=== PATIENT | female | born 1960 | race Caucasian/White ===

== ENCOUNTER 2018-09-27 11:05 | Outpatient (CLI) | payer OTHER ==
--- NOTE | 2018-09-27 14:17 | RAD ---
TWO VIEWS LUMBAR SPINE: HISTORY: Back pain. FINDINGS: AP and lateral views of the lumbar spine were obtained. Images demonstrate osteoporosis seen. There is a compression fracture in the superior aspect of the L1 vertebrae. There is also mild compr ession fracture seen in the anterior superior aspect of the L3 vertebrae. No evidence of aime- or retrolisthesis seen. IMPRESSION: L1 and milder possible L3 compression fractures. POS: [facility]
== END 2018-09-27 11:06 | disposition home or self-care (01) ==
LOC: TBSIIMAG 11:05
PROVIDERS: ATTEND Neurological Surgery
DX: M48.56XA Collapsed vertebra, not elsewhere classified, lumbar region, initial encounter for fracture (principal)
CPT/HCPCS: 72100